=== PATIENT | female | born 1995 | race Caucasian/White ===

== ENCOUNTER 2025-05-30 06:49 | Emergency (ER) | payer OTHER ==
[~2025-05-30] VITALS: Ht 162.6 cm; Wt 68.4 kg
[2025-05-30 06:54] VITALS: TEMP 97.7
[2025-05-30] MEDS: ONDANSETRON 4MG 2ML VIAL IV ONE (07:40)
[2025-05-30 07:56] LABS: BASO # 0.0 10^3/uL (0.0-0.2); BASO % 0.3 % (0.0-1.0); EOS # 0.0 10^3/uL (0.0-0.5); EOS % 0.4 % (0.0-3.0); LYMPH # 2.3 10^3/uL (1.5-5.0); LYMPH % 24.4 % (24.0-44.0); MONO # 0.6 10^3/uL (0.0-0.8); MONO % 5.9 % (2.0-8.0); NEUTROPHILS # 6.4 10^3/uL (1.5-8.5); NEUTROPHILS % 68.9 % (36.0-66.0); PLATELET COUNT, AUTOMATED 293 10^3/uL (150-450)
[2025-05-30 08:30] LABS: ALT/SGPT 16 U/L (7.0-40); AST/SGOT 24 U/L (<34); CALCIUM LEVEL 8.3 MG/DL (8.5-10.1); CARBON DIOXIDE LEVEL 25 MMOL/L (20-31); CHLORIDE LEVEL 107 MMOL/L (98-107); CREATININE FOR GFR 0.63 MG/DL (0.55-1.30); GLOMERULAR FILTRATION RATE > 90.0 (>60); POTASSIUM SERUM 4.1 MMOL/L (3.5-5.1); SODIUM LEVEL 143 MMOL/L (136-145)
[2025-05-30 09:02] LABS: HCG, SERUM QUANTITATIVE 1481.2 MIU/ML (<4.2)
[2025-05-30 09:54] VITALS: BP 114/78; O2SAT 99
[2025-05-30 10:14] LABS: KETONE, URINE AUTO RFX NEGATIVE (NEGATIVE); LEUKOCYTE ESTERASE UR AUTO RFX NEGATIVE (NEGATIVE); MUCUS, URINE RFX SMALL (NEGATIVE); NITRITE, URINE AUTO RFX NEGATIVE (NEGATIVE); RBC, URINE AUTO RFX 3 /HPF (0-3); SQUAM EPITHELIAL CELL UR AURFX 1 /HPF (0-6); WBC, URINE AUTO RFX 1 /HPF (0-3)
== END 2025-05-30 11:59 | disposition home or self-care (01) ==
LOC: M ED 06:49
DX: O20.0 Threatened abortion (principal); Z3A.00 Weeks of gestation of pregnancy not specified
CPT/HCPCS: 76801; 76817; 80048; 80076; 81001; 83690; 84702; 85025; 86850; 86900; 86901; 93976; 96374; 99284; J2405

== ENCOUNTER → 2025-06-01 | Outpatient (CLI) | payer OTHER | LOC: M LAB 10:22 | PROVIDERS: ATTEND Registered Nurse | DX: O20.0 Threatened abortion (principal); Z3A.00 Weeks of gestation of pregnancy not specified ==

== ENCOUNTER 2025-10-18 09:13 | Emergency (ER) | payer OTHER ==
[~2025-10-18] VITALS: Ht 172.7 cm; Wt 72.4 kg
[2025-10-18 09:17] VITALS: BP 113/73; TEMP 97.6; O2SAT 100
== END 2025-10-18 11:51 | disposition home or self-care (01) ==
LOC: M ED 09:13
DX: Z32.01 Encounter for pregnancy test, result positive (principal)

== ENCOUNTER 2025-10-22 23:07 | Emergency (ER) | payer OTHER ==
[~2025-10-22] VITALS: Ht 167.6 cm; Wt 73.1 kg
[2025-10-22] MEDS ORDERED: PRENTAB9 (23:18)
[2025-10-22 23:40] LABS: BASO # 0.0 10^3/uL (0.0-0.2); BASO % 0.2 % (0.0-1.0); EOS # 0.0 10^3/uL (0.0-0.5); EOS % 0.3 % (0.0-3.0); LYMPH # 3.8 10^3/uL (1.5-5.0); LYMPH % 39.4 % (24.0-44.0); MONO # 0.8 10^3/uL (0.0-0.8); MONO % 8.2 % (2.0-8.0); NEUTROPHILS # 5.0 10^3/uL (1.5-8.5); NEUTROPHILS % 51.7 % (36.0-66.0); PLATELET COUNT, AUTOMATED 314 10^3/uL (150-450)
[2025-10-22 23:53] LABS: APPEARANCE, URINE CLEAR (CLEAR); BACTERIA, URINE AUTO 1+ (NEGATIVE); BILIRUBIN, URINE AUTO NEGATIVE (NEGATIVE); BLOOD, URINE BLOOD NEGATIVE (NEGATIVE); GLUCOSE, URINE (UA) AUTO NEGATIVE (NEGATIVE); KETONE, URINE AUTO NEGATIVE (NEGATIVE); LEUKOCYTE ESTERASE, URINE AUTO NEGATIVE (NEGATIVE); MUCUS, URINE SMALL (NEGATIVE); NITRITE, URINE AUTO NEGATIVE (NEGATIVE); PROTEIN, URINE AUTO NEGATIVE (NEGATIVE); RBC, URINE AUTO 1 /HPF (0-3); SPECIFIC GRAVITY URINE AUTO 1.011 (1.002-1.035); SQUAMOUS EPITHELIAL CELL UR AU 0 /HPF (0-6); UROBILINOGEN, URINE AUTO 0.2 mg/dL (0.0-2.0); WBC, URINE AUTO 1 /HPF (0-3)
[2025-10-23 00:02] LABS: HCG, SERUM QUANTITATIVE 572.0 MIU/ML (<4.2)
[2025-10-23 00:03] LABS: CALCIUM LEVEL 8.4 MG/DL (8.5-10.1); CARBON DIOXIDE LEVEL 26 MMOL/L (20-31); CHLORIDE LEVEL 105 MMOL/L (98-107); CREATININE FOR GFR 0.67 MG/DL (0.55-1.30); GLOMERULAR FILTRATION RATE > 90.0 (>60); POTASSIUM SERUM 4.3 MMOL/L (3.5-5.1); SODIUM LEVEL 139 MMOL/L (136-145)
[2025-10-23 03:41] VITALS: BP 107/62; TEMP 98.4; O2SAT 100
== END 2025-10-23 04:53 | disposition left against medical advice (07) ==
LOC: M ED 23:07
DX: Z53.21 Procedure and treatment not carried out due to patient leaving prior to being seen by health care provider (principal)